=== PATIENT | male | born 1950 | race Caucasian/White ===

== ENCOUNTER 2022-11-03 14:48 | Inpatient (IN) | payer OTHER, BC ==
[~2022-11-03] VITALS: Ht 193 cm; Wt 87.5 kg
[2022-11-06] MEDS ORDERED: CARTIA XT240 MG PO (08:36)
[2022-11-06] MEDS ORDERED: LOPRESSOR25 MG PO (08:36)
[2022-11-06] MEDS ORDERED: FUSION PLUS CA1 EACH PO (08:37)
[2022-11-06] MEDS ORDERED: VITAMIN B-121000 MC2 SL (08:37)
[2022-11-06] MEDS ORDERED: FOLIC ACID1 MG PO (08:38)
== END 2022-11-06 09:49 | disposition home or self-care (01) | DRG 812 ==
LOC: ER 14:48 → ICU-2 19:59 → SEC-K 11-04 22:14 → MEDI 11-05 01:34
PROVIDERS: ADMIT Internal Medicine; ATTEND Internal Medicine
PROC: 4A12X4Z Monitoring of Cardiac Electrical Activity, External Approach (ICD-10-PCS; 2022-11-03)
PROC: B24BYZZ Ultrasonography of Heart with Aorta using Other Contrast (ICD-10-PCS; 2022-11-03)
PROC: 30233N1 Transfusion of Nonautologous Red Blood Cells into Peripheral Vein, Percutaneous Approach (ICD-10-PCS; principal; 2022-11-04)
DX: D50.0 Iron deficiency anemia secondary to blood loss (chronic) (principal); K92.1 Melena; N17.9 Acute kidney failure, unspecified; I48.91 Unspecified atrial fibrillation; Q27.33 Arteriovenous malformation of digestive system vessel; Z95.818 Presence of other cardiac implants and grafts